=== PATIENT | female | born 1990 | race Hispanic/Latino ===

== ENCOUNTER → 2019-05-22 | Outpatient (REF) | payer MEDICAID ==
[2019-05-22 13:25] LABS: BASO % 0.5 % (0.0-1.0); EOS # 0.3 10^3/uL (0.0-0.50); EOS % 5.1 % (0.0-3.0); HEMATOCRIT 43.2 % (36.0-47.0); HEMOGLOBIN 14.9 g/dl (12.0-15.5); LYMPH # 2.1 10^3/uL (1.5-6.5); LYMPH % 36.5 % (24.0-44.0); MEAN CORPUSCULAR HEMOGLOBIN 31.6 pg (27.0-33.0); MEAN CORPUSCULAR HGB CONC 34.5 g/dl (32.0-36.5); MEAN CORPUSCULAR VOLUME 91.5 fl (80.0-96.0); MONO # 0.7 10^3/uL (0.0-0.8); MONO % 11.8 % (0.0-5.0); NEUTROPHILS # 2.7 10^3/uL (1.8-7.7); NEUTROPHILS % 45.8 % (36.0-66.0); PLATELET COUNT, AUTOMATED 324 10^3/uL (150-450); RED BLOOD COUNT 4.72 10^6/uL (4.00-5.40); WHITE BLOOD COUNT 5.9 10^3/uL (4.0-10.0)
[2019-05-22 13:43] LABS: ALBUMIN 3.8 GM/DL (3.2-5.2); ALT/SGPT 54 U/L (12-78); BILIRUBIN,TOTAL 0.6 MG/DL (0.2-1.0); BLOOD UREA NITROGEN 8 MG/DL (7-18); CALCIUM LEVEL 8.7 MG/DL (8.5-10.1); CARBON DIOXIDE LEVEL 27 MEQ/L (21-32); CHLORIDE LEVEL 107 MEQ/L (98-107); CHOLESTEROL LEVEL 149 MG/DL (<200); CREATININE FOR GFR 0.61 MG/DL (0.55-1.30); FREE T4 0.84 NG/DL (0.76-1.46); GLOMERULAR FILTRATION RATE > 60.0 (>60); GLUCOSE, FASTING 83 MG/DL (70-100); HDL CHOLESTEROL 39 MG/DL (>40); LDL CHOLESTEROL 85 MG/DL (<100); NON-HDL-C 110 MG/DL; POTASSIUM SERUM 4.3 MEQ/L (3.5-5.1); SODIUM LEVEL 138 MEQ/L (136-145); TOTAL 25(OH) VITAMIN D 16.5 NG/ML (30.0-100.0); TOTAL PROTEIN 7.7 GM/DL (6.4-8.2); TRIGLYCERIDES LEVEL 124 MG/DL (<150)
[2019-05-22 15:30] LABS: HEMOGLOBIN A1c 5.3 %
[2019-05-24 00:07] LABS: Lyme Disease IgG/IgM Antibodie <0.91 ISR (0.00-0.90); Lyme Disease IgM Ab Quantitati <0.80 index (0.00-0.79)
== END ==
LOC: M LAB REF 12:50
PROVIDERS: ATTEND Family Medicine
DX: Z13.228 Encounter for screening for other metabolic disorders (principal)

== ENCOUNTER → 2019-06-09 | Outpatient (REF) | payer BC, MEDICAID | LOC: M LAB REF 18:55 | PROVIDERS: ATTEND Nurse Practitioner Adult Health | DX: Z12.4 Encounter for screening for malignant neoplasm of cervix (principal); R87.615 Unsatisfactory cytologic smear of cervix ==

== ENCOUNTER → 2019-08-21 | Outpatient (REF) | payer BC, MEDICAID | LOC: M LAB REF 13:39 | PROVIDERS: ATTEND Nurse Practitioner Family | DX: R87.610 Atypical squamous cells of undetermined significance on cytologic smear of cervix (ASC-US) (principal) ==

== ENCOUNTER 2019-11-05 06:54 | Emergency (ER) | payer BC, MEDICAID ==
[~2019-11-05] VITALS: Ht 165.1 cm; Wt 59.0 kg
[2019-11-05] MEDS ORDERED: RANI1TAB38 PO (07:23)
[2019-11-05] MEDS ORDERED: PANTOPRAZOLE 40MG INJ (PROTONIX) (C9113) IV ONE (07:45)
[2019-11-05] MEDS ORDERED: ONDANSETRON 4MG/2ML VIAL (J2405) IV ONE (07:45)
[2019-11-05 07:59] LABS: APPEARANCE, URINE CLEAR (CLEAR); BACTERIA, URINE AUTO NEGATIVE (NEGATIVE); BASO % 0.4 % (0.0-1.0); BILIRUBIN, URINE AUTO NEGATIVE (NEGATIVE); BLOOD, URINE BLOOD 2+ (NEGATIVE); COLOR, URINE YELLOW (YELLOW); EOS # 0.5 10^3/uL (0.0-0.5); EOS % 5.1 % (0.0-3.0); GLUCOSE, URINE (UA) AUTO NEGATIVE (NEGATIVE); HEMATOCRIT 38.3 % (36.0-47.0); HEMOGLOBIN 13.1 g/dl (12.0-15.5); KETONE, URINE AUTO NEGATIVE (NEGATIVE); LEUKOCYTE ESTERASE, URINE AUTO NEGATIVE (NEGATIVE); LYMPH % 19.1 % (24.0-44.0); MEAN CORPUSCULAR HGB CONC 34.2 g/dl (32.0-36.5); MEAN CORPUSCULAR VOLUME 90.8 fl (80.0-96.0); MONO # 0.8 10^3/uL (0.0-0.8); MONO % 8.1 % (0.0-5.0); MUCUS, URINE SMALL (NEGATIVE); NEUTROPHILS # 6.9 10^3/uL (1.5-8.5); NEUTROPHILS % 66.9 % (36.0-66.0); NITRITE, URINE AUTO NEGATIVE (NEGATIVE); PLATELET COUNT, AUTOMATED 297 10^3/uL (150-450); PROTEIN, URINE AUTO NEGATIVE (NEGATIVE); RBC, URINE AUTO 7 /HPF (0-3); RED BLOOD COUNT 4.22 10^6/uL (4.00-5.40); SPECIFIC GRAVITY URINE AUTO 1.024 (1.002-1.035); SQUAMOUS EPITHELIAL CELL UR AU 2 /HPF (0-6); WBC, URINE AUTO 1 /HPF (0-3); WHITE BLOOD COUNT 10.3 10^3/uL (4.0-10.0)
[2019-11-05] MEDS ORDERED: FAMOTIDINE IV BAG 20 MG in IV 1 EA IV ONE (08:00)
[2019-11-05] MEDS ORDERED: NS 1,000 ML IV STA (08:00)
[2019-11-05] MEDS ORDERED: METOCLOPRAMIDE INJ 10MG/2ML VIAL (J2765) IV ONE (08:00)
[2019-11-05 08:23] LABS: ALBUMIN 3.2 GM/DL (3.2-5.2); ALT/SGPT 47 U/L (12-78); AMYLASE 33 U/L (25-115); BILIRUBIN,DIRECT 0.4 MG/DL (0.0-0.2); HCG, SERUM QUANTITATIVE 121 MIU/ML; LIPASE 123 U/L (73-393); TOTAL PROTEIN 6.8 GM/DL (6.4-8.2)
[2019-11-05] MEDS ORDERED: SUCRALFATE SUSP 1GM/10ML UD PO ONE (09:00)
[2019-11-05 09:14] LABS: H PYLORI QUALITATIVE IgG NEGATIVE (NEGATIVE)
[2019-11-05] MEDS ORDERED: SUCR1SUS PO (09:40)
[2019-11-05 09:46] VITALS: BP 103/65
== END 2019-11-05 09:48 | disposition home or self-care (01) ==
LOC: M ED 06:54
DX: O21.8 Other vomiting complicating pregnancy (principal); O99.619 Diseases of the digestive system complicating pregnancy, unspecified trimester; Z32.01 Encounter for pregnancy test, result positive; Z79.899 Other long term (current) drug therapy
CPT/HCPCS: 80047; 80076; 81001; 82150; 83690; 84702; 85025; 86677; 96365; 96375; 99284; J2765

== ENCOUNTER → 2019-12-29 | Outpatient (CLI) | payer BC ==
[~2019-12-29] MED LIST: RANI1TAB38 PO; SUCR1ORA PO
[2019-12-29 13:41] LABS: BASO % 0.3 % (0.0-1.0); EOS # 0.2 10^3/uL (0.0-0.5); EOS % 2.8 % (0.0-3.0); HEMATOCRIT 40.3 % (36.0-47.0); HEMOGLOBIN 13.7 g/dl (12.0-15.5); LYMPH # 1.4 10^3/uL (1.5-5.0); LYMPH % 23.7 % (24.0-44.0); MEAN CORPUSCULAR HEMOGLOBIN 30.7 pg (27.0-33.0); MEAN CORPUSCULAR VOLUME 90.4 fl (80.0-96.0); MONO # 0.6 10^3/uL (0.0-0.8); MONO % 10.3 % (0.0-5.0); NEUTROPHILS # 3.8 10^3/uL (1.5-8.5); NEUTROPHILS % 62.6 % (36.0-66.0); PLATELET COUNT, AUTOMATED 285 10^3/uL (150-450); RED BLOOD COUNT 4.46 10^6/uL (4.00-5.40)
[2019-12-29 14:36] LABS: HIV 1&2 SCREEN CENTAUR NEGATIVE (NEGATIVE); RUBELLA IgG QUALITATIVE IMMUNE (IMMUNE)
== END ==
LOC: M PLALAB 10:46
PROVIDERS: ATTEND Advanced Practice Midwife
DX: Z34.81 Encounter for supervision of other normal pregnancy, first trimester (principal); Z36.89 Encounter for other specified antenatal screening

== ENCOUNTER → 2020-02-02 | Outpatient (REF) | payer BC, SELFPAY ==
[2020-02-02 13:03] LABS: CHLAMYDIA DNA AMPLIFICATION NEGATIVE (NEGATIVE); GC DNA AMPLIFICATION NEGATIVE (NEGATIVE)
== END ==
LOC: M SFHCWAGY 09:27
PROVIDERS: ATTEND Advanced Practice Midwife
DX: Z34.92 Encounter for supervision of normal pregnancy, unspecified, second trimester (principal)

== ENCOUNTER → 2020-02-02 | Outpatient (CLI) | payer BC, SELFPAY | LOC: M WHC 08:42 | PROVIDERS: ATTEND Advanced Practice Midwife | DX: Z34.92 Encounter for supervision of normal pregnancy, unspecified, second trimester (principal); Z53.9 Procedure and treatment not carried out, unspecified reason ==

== ENCOUNTER → 2020-02-13 | Outpatient (CLI) | payer OTHER ==
--- NOTE | 2020-02-13 10:23 | REP ---
OBSTETRIC SONOGRAPHY: HISTORY: Supervision of for anatomy. FINDINGS: Scanning through the gravid uterus demonstrates a single living intrauterine gestation in a cephalic lie. motion is observed and heart rate is recorded at 146 beats per minute. An anterior grade 1 placenta is seen without evidence of previa or abruption. Amniotic fluid is subjectively normal. Closed cervical length measures 3.1 cm, viewed transabdominally. There is a 3.9 cm cystic area in the left ovary. No anomaly is seen. The following anatomic structures are identified and felt to be sonographically unremarkable: cranium, choroid plexus, cavum, cerebellum and posterior fossa, nuchal fold, face and profile, four-chamber heart with left and right ventricular outflow tract views, diaphragm, left-sided stomach, abdominal wall cord insertion, three-vessel cord, kidneys and bladder, spine, upper and lower extremities. Biometry Chart: BPD 4.5 cm = 19 weeks 4 days HC 15.4 cm = 18 weeks 3 days AC 12.6 cm = 18 weeks 1 day FL 2.8 cm = 18 weeks 3 days HL 2.7 cm = 18 weeks 3 days HC/AC ratio normal 1.22. Cephalic index normal 0.84. Estimated weight 236 grams, 0 pounds 8 ounces, 34th percentile for 18 weeks 5 days. IMPRESSION: Viable single intrauterine gestation at 18 weeks 4 days by today's composite sonographic criteria. KARSON by today's sonography July 12, 2020.
== END ==
LOC: M WHC 08:04
PROVIDERS: ATTEND Advanced Practice Midwife
DX: Z36.89 Encounter for other specified antenatal screening (principal); Z3A.18 18 weeks gestation of pregnancy

== ENCOUNTER → 2020-06-16 | Outpatient (REF) | payer OTHER ==
[~2020-06-16] MED LIST changes: +ACET-683 PO; +IBUP80TA PO; +OMEP10CASR PO; +PRENTAB9 PO
== END ==
LOC: M SFHCWAGY 12:25
PROVIDERS: ATTEND Obstetrics & Gynecology
DX: Z34.90 Encounter for supervision of normal pregnancy, unspecified, unspecified trimester (principal); Z3A.00 Weeks of gestation of pregnancy not specified

== ENCOUNTER 2020-07-03 07:05 | Outpatient (CLI) | payer OTHER ==
[~2020-07-03] VITALS: Ht 165.1 cm; Wt 58.1 kg
[~2020-07-03 07:05] MED LIST changes: -ACET-683 PO; -IBUP80TA PO; -OMEP10CASR PO; -PRENTAB9 PO
[2020-07-03 07:36] VITALS: BP 119/81
[2020-07-03] MEDS ORDERED: OMEP10CASR PO (07:48)
[2020-07-03] MEDS ORDERED: PRENTAB9 PO (07:48)
--- NOTE | 2020-07-03 09:00 | IPNPDOC ---
Obstetrical Progress Note Date of Service Jul 03, 2020 Subjective 30-year-old 2, para 1, EDC 07/11/2020, presents to labor and delivery triage with complaints of contractions. She reports contractions approximately every 10 minutes. Reports active movements. Denies any vaginal bleeding or leakage fluid Objective Vital Signs Date Time Temp Pulse Resp B/P (MAP) Pulse Ox O2 Delivery O2 Flow Rate FiO2 07/03/20 07:36 98.0 86 16 119/81 (94) Assessment Variability: Moderate Accelerations: Positive Heart Rate Tracing: Category I Tocometer Contractions: Yes Frequency: greater than 9 min/apart Sterile Vaginal Examination Dilation: 2cm Effacement (%): 70% Cervical Consistency: Soft Cervical Position: Posterior Postion/Presentation: Cephalic presentation Assessment and Plan Age: 30 : 2 EGA at Admission: 1 Status: Reassuring Additional Comments 30-year-old 2, para 1 at 38 weeks 6 days estimated gestational age with contractions, but not in active labor. Home with labor precautions and kick count instructions -Follow-up at next OB appointment ELIDA GARCIA MD. Jul 03, 2020 09:00
[2020-07-03 09:21] VITALS: BP 106/70
== END 2020-07-03 09:30 | disposition home or self-care (01) ==
LOC: M LDO 07:05
PROVIDERS: ATTEND Advanced Practice Midwife
DX: O47.1 False labor at or after 37 completed weeks of gestation (principal); Z3A.38 38 weeks gestation of pregnancy

== ENCOUNTER 2020-07-09 09:58 | Inpatient (IN) | payer OTHER ==
[~2020-07-09] VITALS: Ht 165.1 cm; Wt 59.6 kg
[~2020-07-09 09:58] MED LIST changes: +OMEP10CASR PO; +PRENTAB9 PO
[2020-07-09 10:23] VITALS: BP 115/73
[2020-07-09] MEDS ORDERED: LR 1,000 ML IV SCH (10:42)
[2020-07-09] MEDS ORDERED: LACTATED RINGER'S 1000 ML IV STA (10:42)
--- NOTE | 2020-07-09 10:56 | HPEPDOC ---
Obstetrical History & Physical General Date of Admission Jul 09, 2020 at 10:21 History of Present Illness Chief Complaint: Contractions, term Information Provided By: Patient, Family Age: 30 : 3 Term: 1 Pre-term: 0 Abortions: 1 Livin Care Care: Good Care Dating Final EDC: Jul 11, 2020 Final EDC by: LMP EGA at Admission: 39 (+5) Past Medical History Past Obstetrical History : Past Obstetrical History: Primgravida Type of Delivery: Spontaneous Vaginal Del. 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 Past Medical History Medical History Denies Surgical History: Denies/None Family History Significant Family History: No pertinent family hx Social History Marital Status: Family situation: Spouse/partner home Psychosocial History: No pertinent psych hx * Smoker: non-smoker Alcohol: Denies Drugs: denies Allergies Coded Allergies: No Known Allergies (Unverified , 11/05/19) Medications Scheduled Omeprazole (Omeprazole) 10 Mg Capsule.dr, 2 CAP PO DAILY No.137/Iron/Folic Acd ( Vitamin Tablet) 1 Each Tablet, 1 TAB PO DAILY Physical Examination Physical Examination GENERAL: Alert and oriented times three. BREAST: . ABDOMEN: Gravid and non-tender to touch. FETUS: Is vertex (VTX) by sterile vaginal examination (SVE), fetus is vertex (VTX) by Jean Pierre. HEART RATE: Regular rate and rhythm. LUNGS: Clear to auscultation (CTA). EXTREMITIES: No edema. No clonus. Deep tendon reflexes (DTRs) + 2. Vital Signs/I&O Vital Signs Date Time Temp Pulse Resp B/P (MAP) Pulse Ox O2 Delivery O2 Flow Rate FiO2 07/09/20 10:23 97.9 83 20 115/73 (87) Room Air Laboratory Data 24H LABS Laboratory Tests 2 07/09/20 10:24: Serology Scanned Report Hepatitis B Testing Pertinent Laboratoy Data Blood Type: A+ RBC Antibody Screen: Negative HIV: Negative Hepatitis B: Negative Hepatitis C: Negative Rapid Plasma Reagin: Nonreactive Rubella: Immune Chlamydia/Gonorrhea: Negative Group B Streptococcus: Negative Glucose Tolerance Test: 101 Anatomy Ultrasound Ultrasound Date: Feb 13, 2020 Placenta Location: Anterior Normal Anatomy: Yes Placenta Previa: No Estimated Weight (grams): 236 (34%) Vaginal Examination Dilation: 3 cm (-4) Effacement: 90% Station: -1 Cervical Consistency: Soft Cervical Position: Middle Presentation: Cephalic presentation Assessment Heart Rate (FHR): 125 Variability: Moderate Accelerations: Positive Decelerations: None Tocometer Contractions: Yes Frequency: every 2-5 min. Strength: palpated as moderate Assessment/Plan Assessment Shea is a 30-year-old (G)3 para (P)1-0-11 at 39+5 weeks. Presents to Labor and Delivery (L&D) with complaints of painful contractions since 0500. Reports bloody show. Denies LOF, bleeding. Fetus is active. Plan Admit and orient. 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 Partner present to assist with translation Diet: clear. Group B Streptococcus (GBS) negative. Labs and intravenous (IV) per unit protocol. Counseled on Pitocin and induction of labor (IOL). Lactated Ringers (LR): Bolus 500 mL, then at 125 mL/hr. Plans epidural Anticipate normal spontaneous delivery (). C-S as appropriate. Mimi Davies CNM Jul 09, 2020 10:55
[2020-07-09 12:15] LABS: HEMATOCRIT 34.2 % (36.0-47.0); HEMOGLOBIN 11.1 g/dl (12.0-15.5); MEAN CORPUSCULAR HEMOGLOBIN 27.6 pg (27.0-33.0); MEAN CORPUSCULAR HGB CONC 32.5 g/dl (32.0-36.5); MEAN CORPUSCULAR VOLUME 85.1 fl (80.0-96.0); PLATELET COUNT, AUTOMATED 243 10^3/uL (150-450); RED BLOOD COUNT 4.02 10^6/uL (4.00-5.40); WHITE BLOOD COUNT 10.6 10^3/uL (4.0-10.0)
[2020-07-09] MEDS ORDERED: FENTANYL 2MCG/ML ROPIVACAINE 0.2% IN 0.9% NACL 100ML IVBAG As Ordered ONE (12:27)
[2020-07-09 12:46] VITALS: BP 138/93
[2020-07-09 13:16] VITALS: BP 120/79
--- NOTE | 2020-07-09 13:20 | IPNPDOC ---
Text Note Date of Service The patient was seen on 07/09/20. NOTE Progress Comfortable with epidural. FH 125, minimal to moderate variability, no decels UC 2-5 minutes SVE /100/0, BBOW Anticipate NSVB VS,Fishbone, I+O VS, Fishbone, I+O Laboratory Tests 07/09/20 11:41 Vital Signs Date Time Temp Pulse Resp B/P (MAP) Pulse Ox O2 Delivery O2 Flow Rate FiO2 07/09/20 12:56 94 07/09/20 12:46 138/93 (108) 07/09/20 12:09 97.4 18 Room Air Mimi Davies CNM Jul 09, 2020 13:20
[2020-07-09 13:57] VITALS: BP 115/71
[2020-07-09] MEDS ORDERED: NALOXONE INJ 0.4MG/1ML VIAL (J2310 PER 1MG) IV PRN (14:30)
[2020-07-09] MEDS ORDERED: REFRIGERATOR IV KEYS XX PRN (14:30)
[2020-07-09] MEDS ORDERED: FENTANYL/ROPIVACAINE/NACL BAG 100 ML EPIDURAL SCH (14:30)
[2020-07-09] MEDS ORDERED: EPIDURAL COMMENT XX SCH (14:30)
[2020-07-09] MEDS ORDERED: EPIDURAL/PCA KEYS XX PRN (14:30)
[2020-07-09] MEDS ORDERED: diphenhydrAMINE 50MG/ML VIAL (J1200) IV PRN (14:30)
[2020-07-09] MEDS ORDERED: LACTATED RINGER'S 1000 ML IV PRN (14:30)
[2020-07-09] MEDS ORDERED: ePHEDrine SULFATE 25 MG/5 ML(5MG/ML) SYRINGE IV PRN (14:30)
[2020-07-09] MEDS ORDERED: ONDANSETRON 4MG/2ML VIAL IV PRN ×2 (14:30→18:30)
[2020-07-09 15:47] VITALS: BP 109/65
[2020-07-09] MEDS ORDERED: OXYTOCIN 30 UNITS IN 0.9% NaCl 500ML IV BAG (J2590) As Ordered ONE (16:19)
[2020-07-09] MEDS ORDERED: METHYLERGONOVINE MALEATE 0.2 MG/ML VIAL (J2210) As Ordered ONE (16:38)
[2020-07-09] MEDS ORDERED: OXYTOCIN DRIP 30 UNITS in IV 1 EA IV SCH (16:58)
[2020-07-09] MEDS ORDERED: DIBUCAINE 1% OINTMENT 30GM TOP PRN (17:00)
[2020-07-09] MEDS ORDERED: IBUPROFEN 600MG TAB PO PRN (17:00)
[2020-07-09] MEDS ORDERED: ACETAMINOPHEN TAB 650MG DOSE (2X325MG) PO PRN (17:00)
[2020-07-09] MEDS ORDERED: MOM 30ML SUSPENSION UDC PO PRN (17:00)
[2020-07-09] MEDS ORDERED: RHOGAM 300 MCG (1500 IU) INJ (J2790) IM SCH (17:00)
[2020-07-09] MEDS ORDERED: MEASLES,MUMPS,RUBELLA VACCINE INJ (MMR-II) (90707) SC SCH (17:00)
[2020-07-09] MEDS ORDERED: DOCUSATE SODIUM 100 MG CAP PO PRN (17:00)
[2020-07-09] MEDS ORDERED: METHYLERGONOVINE MALEATE 0.2 MG/ML VIAL (J2210) IM ONE (17:00)
[2020-07-09] MEDS ORDERED: METHYLERGONOVINE MALEATE 0.2 MG TAB PO PRN (17:00)
[2020-07-09] MEDS ORDERED: ACETAMINOPHEN 500 MG TAB PO PRN (17:00)
--- NOTE | 2020-07-09 17:17 | DNPDOC ---
[facility] Delivery Note Delivery Note DATE OF DELIVERY: 07/09/2020 PREDELIVERY DIAGNOSIS: 39+5/7 weeks' gestation and labor. POST DELIVERY DIAGNOSIS: Delivered. PROCEDURE: Spontaneous vaginal delivery. PROVIDER: Mimi Davies CNM ANESTHESIA: Epidural. ESTIMATED BLOOD LOSS: 350 mL. FINDINGS: 6 pound 7 ounce, 2910gm male infant, Score 9/9, no nuchal cord. DELIVERY SUMMARY: Patient is a 30-year-old 3 now para 2-0-1-2 who was admitted to labor and delivery for onset of UC 0500. She utilized an epidural for labor coping. Spontaneous rupture clear fluid 1600. Fully dilated 1617. Viable male delivered MART without difficulty 1626. Spontaneous respirations with stimulation, transitioned on maternal abdomen. Cord doubly clamped and cut by FOB under my direction once pulsations ceased. Apgars 9/9. Placenta guo, intact with 3v cord @ 1633. Fundus firmed with massage and IV pitocin bolus, however brisk bleeding continued. Methergine 0.2mg IM given with excellent control of bleeding. EBL 350ml. Perineum intact. Bilateral labial abrasions reapproximated with 3 interrupted stitches of 3-0 vicryl rapide on left labia an 1 interrupted stitch of same suture on right. Sponge, sharp and instrument count correct. Mimi Davies CNM Jul 09, 2020 17:17
[2020-07-09] MEDS ORDERED: ONDANSETRON 4MG/2ML VIAL As Ordered ONE (18:13)
[2020-07-09 19:31] VITALS: BP 122/70
[2020-07-10] MEDS: IBUPROFEN 800 MG TAB PO PRN ×2 (01:58→18:19)
[2020-07-10 05:58] VITALS: BP 103/67
--- NOTE | 2020-07-10 07:19 | IPNPDOC ---
Text Note Date of Service The patient was seen on 07/10/20. NOTE PP #1 Feels well. Adequate pain management. . Voiding VSS, afebrile, normotensive Breasts soft, nipples intact Fundus firm, NT, down 1 FB Lochia rubra light without odor PP #1 Routine care. Consider discharge this pm pending peds. Otherwise, d/c in am VS,Fishbone, I+O VS, Fishbone, I+O Laboratory Tests 07/09/20 11:41 Vital Signs Date Time Temp Pulse Resp B/P (MAP) Pulse Ox O2 Delivery O2 Flow Rate FiO2 07/10/20 05:58 97.8 63 18 103/67 (79) 07/09/20 15:47 Room Air I&O- Last 24 Hours up to 6 AM 07/10/20 06:00 Output Total 600 ml Balance -600 ml Mimi Davies CNM Jul 10, 2020 07:19
[2020-07-10] MEDS: PRENATAL VITAMINS CHEWABLE TABLET PO SCH (09:08)
[2020-07-10 18:00] VITALS: BP 106/70
[2020-07-11 06:07] VITALS: BP 101/59
[2020-07-11] MEDS ORDERED: IBUP80TA PO (06:28)
[2020-07-11] MEDS ORDERED: ACET-683 PO (06:28)
[2020-07-11] MEDS: PRENATAL VITAMINS CHEWABLE TABLET PO SCH (09:44)
[2020-07-11] MEDS: IBUPROFEN 800 MG TAB PO PRN (09:45)
== END 2020-07-11 21:35 | disposition home or self-care (01) | DRG 560 ==
LOC: M LDO 09:58 → M LDI 10:21 → M OBS 19:29
PROVIDERS: ADMIT Advanced Practice Midwife; ATTEND Advanced Practice Midwife
PROC: 10E0XZZ Delivery of Products of Conception, External Approach (ICD-10-PCS; principal; 2020-07-09)
DX: O80 Encounter for full-term uncomplicated delivery (principal); Z37.0 Single live birth; Z3A.39 39 weeks gestation of pregnancy

== ENCOUNTER → 2021-01-05 | Outpatient (REF) | payer OTHER ==
[~2021-01-05] MED LIST changes: +ACET-683 PO; +IBUP80TA PO
== END ==
LOC: M SFHCWAGY 12:57
PROVIDERS: ATTEND Advanced Practice Midwife
DX: Z12.4 Encounter for screening for malignant neoplasm of cervix (principal); Z77.9 Other contact with and (suspected) exposures hazardous to health

== ENCOUNTER → 2021-01-14 | Outpatient (REF) | payer OTHER ==
[2021-01-14 12:47] LABS: BASO % 0.5 % (0.0-1.0); EOS # 0.4 10^3/uL (0.0-0.5); EOS % 6.5 % (0.0-3.0); HEMATOCRIT 42.1 % (36.0-47.0); HEMOGLOBIN 13.4 g/dl (12.0-15.5); LYMPH # 2.8 10^3/uL (1.5-5.0); LYMPH % 42.7 % (24.0-44.0); MEAN CORPUSCULAR HEMOGLOBIN 28.2 pg (27.0-33.0); MEAN CORPUSCULAR HGB CONC 31.8 g/dl (32.0-36.5); MEAN CORPUSCULAR VOLUME 88.4 fl (80.0-96.0); MONO # 0.6 10^3/uL (0.0-0.8); MONO % 8.3 % (2.0-8.0); NEUTROPHILS # 2.8 10^3/uL (1.5-8.5); NEUTROPHILS % 41.7 % (36.0-66.0); PLATELET COUNT, AUTOMATED 348 10^3/uL (150-450); RED BLOOD COUNT 4.76 10^6/uL (4.00-5.40); WHITE BLOOD COUNT 6.7 10^3/uL (4.0-10.0)
[2021-01-14 13:26] LABS: ALBUMIN 3.8 GM/DL (3.2-5.2); ALT/SGPT 17 U/L (12-78); BILIRUBIN,TOTAL 0.3 MG/DL (0.2-1.0); BLOOD UREA NITROGEN 17 MG/DL (7-18); CALCIUM LEVEL 8.9 MG/DL (8.5-10.1); CARBON DIOXIDE LEVEL 27 MEQ/L (21-32); CHLORIDE LEVEL 108 MEQ/L (98-107); CREATININE FOR GFR 0.62 MG/DL (0.55-1.30); GLOMERULAR FILTRATION RATE > 60.0 (>60); GLUCOSE, FASTING 87 MG/DL (70-100); POTASSIUM SERUM 4.1 MEQ/L (3.5-5.1); SODIUM LEVEL 141 MEQ/L (136-145); TOTAL PROTEIN 7.8 GM/DL (6.4-8.2)
== END ==
LOC: M LAB REF 12:29
PROVIDERS: ATTEND Nurse Practitioner Family
DX: R11.2 Nausea with vomiting, unspecified (principal)

== ENCOUNTER → 2021-03-23 | Outpatient (CLI) | payer OTHER ==
[2021-03-23 15:45] LABS: HEMATOCRIT 41.5 % (36.0-47.0); HEMOGLOBIN 13.5 g/dl (12.0-15.5); MEAN CORPUSCULAR HEMOGLOBIN 28.5 pg (27.0-33.0); MEAN CORPUSCULAR HGB CONC 32.5 g/dl (32.0-36.5); MEAN CORPUSCULAR VOLUME 87.7 fl (80.0-96.0); PLATELET COUNT, AUTOMATED 350 10^3/uL (150-450); RED BLOOD COUNT 4.73 10^6/uL (4.00-5.40); WHITE BLOOD COUNT 6.8 10^3/uL (4.0-10.0)
[2021-03-23 16:19] LABS: ALBUMIN 3.9 GM/DL (3.2-5.2); ALT/SGPT 16 U/L (12-78); BILIRUBIN,DIRECT < 0.1 MG/DL (0.0-0.2); BILIRUBIN,TOTAL 0.3 MG/DL (0.2-1.0); BLOOD UREA NITROGEN 8 MG/DL (7-18); CREATININE FOR GFR 0.62 MG/DL (0.55-1.30); GLOMERULAR FILTRATION RATE > 60.0 (>60)
== END ==
LOC: M LAB 15:15
PROVIDERS: ATTEND Internal Medicine Gastroenterology
DX: R11.2 Nausea with vomiting, unspecified (principal)

== ENCOUNTER → 2021-04-05 | Outpatient (CLI) | payer OTHER ==
--- NOTE | 2021-04-05 09:40 | REP ---
INDICATION: NAUSEA, VOMITING COMPARISON: None. TECHNIQUE: Real time ricardo scale ultrasound examination using curved array transducer. FINDINGS: Liver is normal in contour, size, and echogenicity without focal hepatic lesions identified. Pancreas is incompletely evaluated due to interposed bowel gas. The gallbladder is normal and without gallstones, wall thickening, or pericholecystic fluid. No biliary ductal dilatation is appreciated and the common bile duct measures 2.0 mm diameter. Right kidney is normal in reniform shape without hydronephrosis and measures 10.4 x 4.9 x 4.5 cm. No ascites in the visualized right upper quadrant. IMPRESSION: Normal limited right upper quadrant ultrasound <Electronically signed by Jeremiah Figueroa > 04/05/21 [id number]
== END ==
LOC: M RAD 09:05
PROVIDERS: ATTEND Internal Medicine Gastroenterology
DX: R11.2 Nausea with vomiting, unspecified (principal)

== ENCOUNTER → 2021-04-27 | Outpatient (CLI) | payer OTHER ==
[~2021-04-27] MED LIST changes: +OMEP-221; +TUMS750C5 PO
== END ==
LOC: M LABSMTC 10:26
PROVIDERS: ATTEND Anesthesiology
DX: Z01.812 Encounter for preprocedural laboratory examination (principal); Z20.822 Contact with and (suspected) exposure to COVID-19

== ENCOUNTER 2021-05-02 13:13 | Day surgery (SDC) | payer OTHER ==
[~2021-05-02] VITALS: Ht 157.5 cm; Wt 60.3 kg
[~2021-05-02 13:13] MED LIST changes: +NS 1,000 ML IV ONE
[2021-05-02] MEDS ORDERED: propofoL 200 MG/20 ML VIAL As Ordered ONE ×2 (13:27→14:19)
[2021-05-02] MEDS ORDERED: LIDOCAINE 2% 100MG/5ML SDV (FOR ANES.) As Ordered ONE (13:27)
[2021-05-02] MEDS ORDERED: fentaNYL 100 MCG/2 ML INJECTION (J3010) As Ordered ONE (13:27)
--- NOTE | 2021-05-02 14:44 | ROOR ---
Patient Name: Shea Michel Procedure Date: 05/02/2021 1:58 PM Date of : 1990 Age: 30 Room: [facility] Gender: Female Note Status: Finalized Procedure: Upper GI endoscopy Indications: Dyspepsia, Nausea with vomiting Providers: Eduardo Silva MD Referring MD: Mary Núñez NP Requesting Provider: Medicines: Monitored Anesthesia Care Complications: No immediate complications. Procedure: Pre-Anesthesia Assessment: - Prior to the procedure, a History and Physical was performed, and patient medications and allergies were reviewed. The patient is competent. The risks and benefits of the procedure and the sedation options and risks were discussed with the patient. All questions were answered and informed consent was obtained. Patient identification and proposed procedure were verified by the physician, the nurse and the anesthesiologist in the procedure room. Mental Status Examination: alert and oriented. Airway Examination: normal oropharyngeal airway and neck mobility. Respiratory Examination: clear to auscultation. CV Examination: normal. Prophylactic Antibiotics: The patient does not require prophylactic antibiotics. Prior Anticoagulants: The patient has taken no previous anticoagulant or antiplatelet agents. ASA Grade Assessment: II - A patient with mild systemic disease. After reviewing the risks and benefits, the patient was deemed in satisfactory condition to undergo the procedure. The anesthesia plan was to use monitored anesthesia care (MAC). Immediately prior to administration of medications, the patient was re-assessed for adequacy to receive sedatives. The heart rate, respiratory rate, oxygen saturations, blood pressure, adequacy of pulmonary ventilation, and response to care were monitored throughout the procedure. The physical status of the patient was re-assessed after the procedure. The Endoscope was introduced through the mouth, and advanced to the second part of duodenum. The upper GI endoscopy was accomplished without difficulty. The patient tolerated the procedure well. Findings: The examined esophagus was normal. The Z-line was regular and was found 36 cm from the incisors. Patchy mild inflammation characterized by erythema and granularity was found in the gastric antrum. Biopsies were taken with a cold forceps for Helicobacter pylori testing. Verification of patient identification for the specimen was done by the physician and nurse using the patient's name, date and medical record number. Estimated blood loss was minimal. No gross lesions were noted in the duodenal bulb, in the second portion of the duodenum, in the area of the papilla and in the third portion of the duodenum. Biopsies for histology were taken with a cold forceps for evaluation of celiac disease. Impression: - Normal esophagus. - Z-line regular, 36 cm from the incisors. - Gastritis. Biopsied. - No gross lesions in the duodenal bulb, in the second portion of the duodenum, in the area of the papilla and in the third portion of the duodenum. Biopsied. Recommendation: - Patient has a contact number available for emergencies. The signs and symptoms of potential delayed complications were discussed with the patient. Return to normal activities tomorrow. Written discharge instructions were provided to the patient. - High fiber diet. - Continue present medications. - Await pathology results. - Telephone GI clinic for pathology results in 2 weeks. - Return to primary care physician. - Follow an antireflux regimen. Procedure Code(s): --- Professional --- 13970, Esophagogastroduodenoscopy, flexible, transoral; with biopsy, single or multiple Diagnosis Code(s): --- Professional --- K29.70, Gastritis, unspecified, without bleeding R10.13, Epigastric pain R11.2, Nausea with vomiting, unspecified CPT copyright 2019 [employer]. All rights reserved. The codes documented in this report are preliminary and upon bed and breakfast operator review may be revised to meet current compliance requirements. Eduardo Silva MD Eduardo Silva MD 05/02/2021 2:44:26 PM Electronically signed by Eduardo Silva MD Number of Addenda: 0 Note Initiated On: 05/02/2021 1:58 PM Estimated Blood Loss: Estimated blood loss was minimal.
[2021-05-02 15:00] VITALS: BP 114/74
== END 2021-05-02 15:21 | disposition home or self-care (01) ==
LOC: M OPP 13:13
PROVIDERS: ATTEND Internal Medicine Gastroenterology
DX: K29.70 Gastritis, unspecified, without bleeding (principal); R11.2 Nausea with vomiting, unspecified; R10.13 Epigastric pain
CPT/HCPCS: 43239; 88305; J3010

== ENCOUNTER → 2023-05-21 | Outpatient (REF) | payer OTHER ==
[~2023-05-21] MED LIST changes: -NS 1,000 ML IV ONE; -OMEP-221; +OMEP40CA5
== END ==
LOC: M SFHCWAGY 16:53
PROVIDERS: ATTEND Nurse Practitioner Family
DX: N73.9 Female pelvic inflammatory disease, unspecified (principal); Z11.3 Encounter for screening for infections with a predominantly sexual mode of transmission; Z12.4 Encounter for screening for malignant neoplasm of cervix

== ENCOUNTER 2023-07-24 00:09 | Emergency (ER) | payer OTHER ==
[~2023-07-24] VITALS: Ht 165.1 cm; Wt 65.4 kg
[2023-07-24 00:10] VITALS: BP 136/91; TEMP 99.2; O2SAT 98
== END 2023-07-24 01:47 | disposition left against medical advice (07) ==
LOC: M ED 00:09
DX: Z53.21 Procedure and treatment not carried out due to patient leaving prior to being seen by health care provider (principal)

== ENCOUNTER → 2024-05-28 | Outpatient (REF) | payer OTHER ==
[2024-05-28 14:18] LABS: Trichomonas vaginalis (AMP) NOT DETECTED (NEGATIVE)
[2024-05-28 14:42] LABS: GC DNA AMPLIFICATION NEGATIVE (NEGATIVE)
== END ==
LOC: M SFHCWAGY 12:16
PROVIDERS: ATTEND Nurse Practitioner Family
DX: Z11.3 Encounter for screening for infections with a predominantly sexual mode of transmission (principal)

== ENCOUNTER → 2024-10-03 | Outpatient (REF) | payer OTHER ==
[2024-10-03 12:24] LABS: BASO % 0.3 % (0.0-1.0); EOS # 0.4 10^3/uL (0.0-0.5); EOS % 6.2 % (0.0-3.0); HEMATOCRIT 41.4 % (36.0-47.0); HEMOGLOBIN 13.8 g/dl (12.0-15.5); LYMPH # 2.4 10^3/uL (1.5-5.0); LYMPH % 33.9 % (24.0-44.0); MEAN CORPUSCULAR HGB CONC 33.3 g/dl (32.0-36.5); MONO # 0.6 10^3/uL (0.0-0.8); MONO % 8.3 % (2.0-8.0); NEUTROPHILS # 3.6 10^3/uL (1.5-8.5); PLATELET COUNT, AUTOMATED 380 10^3/uL (150-450)
[2024-10-03 12:39] LABS: ALBUMIN 3.4 G/DL (3.2-5.2); ALKALINE PHOSPHATASE 87 U/L (35-104); ALT/SGPT 15 U/L (7.0-40); AST/SGOT < 8 U/L (<34); BILIRUBIN,TOTAL 0.5 MG/DL (0.3-1.2); BLOOD UREA NITROGEN 14 MG/DL (9-23); CALCIUM LEVEL 8.7 MG/DL (8.5-10.1); CARBON DIOXIDE LEVEL 26 MMOL/L (20-31); CHLORIDE LEVEL 106 MMOL/L (98-107); CHOLESTEROL LEVEL 174 MG/DL (<200); CHOLESTEROL RISK RATIO 3.88 (<5); GLOMERULAR FILTRATION RATE > 60.0 (>60); GLUCOSE, FASTING 88 MG/DL (60-100); HDL CHOLESTEROL 44.8 MG/DL (>40); INR 0.98; LDL CHOLESTEROL 104.8 MG/DL (<100); NON-HDL-C 129.2 MG/DL; POTASSIUM SERUM 4.1 MMOL/L (3.5-5.1); PROTHROMBIN TIME 13.3 SECONDS (12.5-14.5); SODIUM LEVEL 139 MMOL/L (136-145); TOTAL PROTEIN 7.5 G/DL (5.7-8.2); TRIGLYCERIDES LEVEL 122 MG/DL (<150)
[2024-10-03 12:41] LABS: THYROID STIMULATING HORMONE 1.515 uIU/ML (0.55-4.78); TOTAL 25(OH) VITAMIN D 14.6 NG/ML (20.0-100.0)
[2024-10-03 13:04] LABS: HEMOGLOBIN A1c 4.9 % (4.0-6.0)
== END ==
LOC: M LAB REF 12:17
PROVIDERS: ATTEND Nurse Practitioner Family
DX: R53.83 Other fatigue (principal); R04.0 Epistaxis; E55.9 Vitamin D deficiency, unspecified; Z11.9 Encounter for screening for infectious and parasitic diseases, unspecified; Z13.228 Encounter for screening for other metabolic disorders; Z13.6 Encounter for screening for cardiovascular disorders

== ENCOUNTER → 2025-06-29 | Outpatient (CLI) | payer OTHER | LOC: M WHC 13:31 | PROVIDERS: ATTEND Nurse Practitioner Family | DX: Z34.82 Encounter for supervision of other normal pregnancy, second trimester (principal); Z3A.20 20 weeks gestation of pregnancy ==

== ENCOUNTER 2025-07-05 21:38 | Outpatient (CLI) | payer OTHER ==
[~2025-07-05] VITALS: Ht 165.1 cm; Wt 61.2 kg
[2025-07-05 21:55] VITALS: BP 134/78
[2025-07-05] MEDS ORDERED: ACET-897 PO (22:04)
[2025-07-05] MEDS ORDERED: HOME MED LIST COMPLETE! XX SCH (22:15)
[2025-07-05 22:22] LABS: KETONE, URINE AUTO RFX NEGATIVE (NEGATIVE); LEUKOCYTE ESTERASE UR AUTO RFX NEGATIVE (NEGATIVE); NITRITE, URINE AUTO RFX NEGATIVE (NEGATIVE); RBC, URINE AUTO RFX 1 /HPF (0-3); SQUAM EPITHELIAL CELL UR AURFX 4 /HPF (0-6); WBC, URINE AUTO RFX 1 /HPF (0-3)
[2025-07-05] MEDS: FIORICET TAB PO ONE (22:33)
[2025-07-06] MEDS: LR 1,000 ML IV ONE (00:46)
[2025-07-06 01:05] LABS: BASO # 0.0 10^3/uL (0.0-0.2); BASO % 0.5 % (0.0-1.0); EOS # 0.1 10^3/uL (0.0-0.5); EOS % 1.7 % (0.0-3.0); LYMPH # 0.9 10^3/uL (1.5-5.0); LYMPH % 13.0 % (24.0-44.0); MONO # 1.2 10^3/uL (0.0-0.8); MONO % 18.5 % (2.0-8.0); NEUTROPHILS # 4.3 10^3/uL (1.5-8.5); NEUTROPHILS % 65.4 % (36.0-66.0); PLATELET COUNT, AUTOMATED 278 10^3/uL (150-450)
[2025-07-06 01:37] LABS: ALT/SGPT 18 U/L (7.0-40); AST/SGOT 22 U/L (<34); CALCIUM LEVEL 9.3 MG/DL (8.5-10.1); CARBON DIOXIDE LEVEL 24 MMOL/L (20-31); CHLORIDE LEVEL 103 MMOL/L (98-107); CREATININE FOR GFR 0.55 MG/DL (0.55-1.30); GLOMERULAR FILTRATION RATE > 90.0 (>60); MAGNESIUM LEVEL 1.8 MG/DL (1.8-2.4); POTASSIUM SERUM 3.8 MMOL/L (3.5-5.1); SODIUM LEVEL 139 MMOL/L (136-145)
[2025-07-06] MEDS: diphenhydrAMINE 50 MG/ML VIAL IV ONE (04:10)
[2025-07-06 04:11] VITALS: BP 112/73
[2025-07-06 06:52] VITALS: BP 103/55
[2025-07-06] MEDS ORDERED: METO10TA2 PO (07:15)
== END 2025-07-06 07:40 | disposition home or self-care (01) ==
LOC: M LDO 21:38
PROVIDERS: ATTEND Obstetrics & Gynecology
DX: O98.512 Other viral diseases complicating pregnancy, second trimester (principal); U07.1 COVID-19; Z3A.21 21 weeks gestation of pregnancy
CPT/HCPCS: 59025; 80053; 81001; 83735; 85025; 87486; 87581; 87633; 87798; 96374; 96375; G0463; J1200; J2765

== ENCOUNTER → 2025-07-28 | Outpatient (CLI) | payer OTHER ==
[~2025-07-28] MED LIST changes: +ACET-897 PO; +METO10TA2 PO
[2025-07-28 13:51] LABS: PLATELET COUNT, AUTOMATED 324 10^3/uL (150-450)
[2025-07-28 14:13] LABS: GLUCOSE CHALLENGE TEST 1 HOUR 152 MG/DL (LESS THAN 140)
[2025-07-28 14:31] LABS: Trichomonas vaginalis (AMP) NOT DETECTED (NEGATIVE)
[2025-07-28 14:43] LABS: HIV 1&2 SCREEN NEGATIVE (NEGATIVE)
[2025-07-28 14:50] LABS: HEPATITIS C VIRUS ABY INDEX 0.03 INDEX (<0.8)
[2025-07-28 14:55] LABS: GC DNA AMPLIFICATION NEGATIVE (NEGATIVE)
== END ==
LOC: M PLALAB 10:07
PROVIDERS: ATTEND Nurse Practitioner Family
DX: Z34.80 Encounter for supervision of other normal pregnancy, unspecified trimester (principal)

== ENCOUNTER → 2025-08-07 | Outpatient (CLI) | payer OTHER | LOC: M LAB 07:29 | PROVIDERS: ATTEND Nurse Practitioner Family | DX: O99.810 Abnormal glucose complicating pregnancy (principal) ==

== ENCOUNTER → 2025-10-01 | Outpatient (CLI) | payer OTHER | LOC: M WHC 10:25 | PROVIDERS: ATTEND Nurse Practitioner Family | DX: Z34.83 Encounter for supervision of other normal pregnancy, third trimester (principal); Z3A.34 34 weeks gestation of pregnancy ==

== ENCOUNTER → 2025-10-14 | Outpatient (REF) | payer OTHER | LOC: M PLALAB 14:16 | PROVIDERS: ATTEND Student in an Organized Health Care Education/Training Program | DX: Z53.9 Procedure and treatment not carried out, unspecified reason (principal) ==

== ENCOUNTER → 2025-10-21 | Outpatient (REF) | payer OTHER | LOC: M SFHCWAGY 16:37 | PROVIDERS: ATTEND Obstetrics & Gynecology | DX: Z34.93 Encounter for supervision of normal pregnancy, unspecified, third trimester (principal); Z3A.36 36 weeks gestation of pregnancy ==

== ENCOUNTER → 2025-10-31 | Day surgery (SDC) | payer OTHER ==
[~2025-10-31] VITALS: Ht 165.1 cm; Wt 60.0 kg
[~2025-10-31] MED LIST changes: +OMEP40CA4 PO
[2025-10-31] MEDS: FIORICET TAB PO ONE ×2 (08:44→11:37)
[2025-10-31] MEDS: NS (Normal Saline) 0.9% 1,000 ML IV ONE ×2 (08:44→11:35)
[2025-10-31 08:46] LABS: BASO # 0.0 10^3/uL (0.0-0.2); BASO % 0.1 % (0.0-1.0); EOS # 0.2 10^3/uL (0.0-0.5); EOS % 1.9 % (0.0-3.0); LYMPH # 2.0 10^3/uL (1.5-5.0); LYMPH % 20.7 % (24.0-44.0); MONO # 0.7 10^3/uL (0.0-0.8); MONO % 7.0 % (2.0-8.0); NEUTROPHILS # 6.7 10^3/uL (1.5-8.5); NEUTROPHILS % 69.8 % (36.0-66.0); PLATELET COUNT, AUTOMATED 284 10^3/uL (150-450)
[2025-10-31 09:20] LABS: INR 0.96
[2025-10-31 09:37] LABS: CALCIUM LEVEL 8.2 MG/DL (8.5-10.1); CARBON DIOXIDE LEVEL 25 MMOL/L (20-31); CHLORIDE LEVEL 106 MMOL/L (98-107); CREATININE FOR GFR 0.66 MG/DL (0.55-1.30); GLOMERULAR FILTRATION RATE > 90.0 (>60); POTASSIUM SERUM 3.7 MMOL/L (3.5-5.1); SODIUM LEVEL 142 MMOL/L (136-145)
[2025-10-31 10:12] LABS: KETONE, URINE AUTO RFX NEGATIVE (NEGATIVE); LEUKOCYTE ESTERASE UR AUTO RFX 2+ (NEGATIVE); NITRITE, URINE AUTO RFX NEGATIVE (NEGATIVE); RBC, URINE AUTO RFX 28 /HPF (0-3); SQUAM EPITHELIAL CELL UR AURFX 5 /HPF (0-6); WBC, URINE AUTO RFX 112 /HPF (0-3)
[2025-10-31 14:10] VITALS: TEMP 98.1
[2025-10-31 15:05] VITALS: BP 140/100; O2SAT 99
== END | disposition home or self-care (01) ==
LOC: M ED 07:16 → M SDC 14:30
PROVIDERS: ATTEND Occupational Therapy Assistant
DX: G97.1 Other reaction to spinal and lumbar puncture (principal)